=== PATIENT | female | born 1965 | race Caucasian/White ===

== ENCOUNTER 2019-04-20 10:16 | Emergency (ER) | payer OTHER ==
--- NOTE | 2019-04-20 11:37 | ED Physician Chart ---
ED Chief Complaint/HPI - Patient Information Date Seen:: 04/20/19 Time Seen:: 10:30 Allergies:: Allergies Allergy/AdvReac Type Severity Reaction Status Date / Time JAYRO Inhibitors Allergy Verified 04/20/19 10:23 ARB-Angiotensin Receptor Allergy Verified 04/20/19 10:26 Antagonist ciprofloxacin [From Cipro] Allergy Verified 04/20/19 10:22 fentanyl Allergy Verified 04/20/19 10:23 levofloxacin [From Levaquin] Allergy Verified 04/20/19 10:22 Vubfxby-Nwz-Qol Reductase Allergy Verified 04/20/19 10:25 Inhibitor tetracycline Allergy Verified 04/20/19 10:23 beta blockers Allergy Uncoded 04/20/19 10:24 Vitals:: Vital Signs - 8 hr 04/20/19 10:27 Temp 98.6 F HR 66 RR 16 BP 129/87 O2 Sat % 98 Historian:: Patient (fall trip no syncope no head neck complaints convinced ligament damage breanna lateral knee) Review:: Nurse's Note Reviewed ED Review of Systems - Review of Systems General/Constitutional: No fever Skin: No skin lesions Head: No headache Eyes: No loss of vision Neck: Neck pain Cardio Vascular: No chest pain Pulmonary: No SOB GI: No vomiting Musculoskeletal: Bone or joint pain (lateral l leg) ED Past Medical History - Past Medical History Obtainable: Yes (chronic back pain neural stimulator) Past Medical History: No significant medical hx (back surgerys) Surgical History: other (back multiple) Family Medical History - Family Member Mother History Unknown: Yes ED Physical Exam - Physical Examination General/Constitutional: Well-developed, well-nourished, GCS 15, Non-toxic appearing, Ambulatory Head: Atraumatic Eyes: Lids, conjuctiva normal Skin: No rash ENMT: External ears, nose nl Neck: Nontender, Full ROM w/o pain Respiratory: Nl effort/Exclusion, Clear to Auscultation Cardio Vascular: RRR, No murmur, gallop, rubs, NL S1 S2 GI: Normal BS's Extremities: normal strength in all extremities (point tendernes as described) Neuro/Psych: Alert/oriented Misc: Normal back, No paraspinal tenderness ED Labs/Radiology/EKG Results - Lab Results Results: xray negitive knee tib fib ED Assessment - Assessment General Assessment: soft tissue injury l knee leg no fracture present ED Septic Shock - . Is Septic Shock (SBP<90, OR Lactate>4 mmol\L) present?: No - <6hrs of presentation: Vital Signs: Vital Signs - 8 hr 04/20/19 10:27 Temp 98.6 F HR 66 RR 16 BP 129/87 O2 Sat % 98 ED Reassessment (Disposition) - Reassessment Reassessment Condition:: Improved (ice application given splint immobilization option deferred off 2 days)
--- NOTE | 2019-04-20 11:51 | Diagnostic Imaging Report ---
Left knee (3 views) HISTORY: Pain No acute bony abnormalities. No fractures. Joint spaces are maintained. Spur formation is seen off the anterior superior margin of the patella. IMPRESSION: No acute bony abnormalities
--- NOTE | 2019-04-20 11:53 | Diagnostic Imaging Report ---
Left tibia/fibula (2 views, portable) HISTORY: Pain, trauma No acute bony abnormalities. No fractures. IMPRESSION: No acute abnormalities
== END 2019-04-20 11:30 | disposition home or self-care (01) ==
LOC: EEVIPCON 10:16 → ER 10:16
DX: S89.92XA Unspecified injury of left lower leg, initial encounter (principal); Z88.1 Allergy status to other antibiotic agents; Z88.5 Allergy status to narcotic agent; Z88.8 Allergy status to other drugs, medicaments and biological substances; W01.0XXA Fall on same level from slipping, tripping and stumbling without subsequent striking against object, initial encounter; Y93.89 Activity, other specified; Y92.89 Other specified places as the place of occurrence of the external cause; Y99.8 Other external cause status
CPT/HCPCS: 73562-TC-LT; 73590-TC-LT; Z7502